=== PATIENT | female | born 1980 | race Caucasian/White ===

== ENCOUNTER 2021-01-23 09:27 | Outpatient (CLI) | payer OTHER, SELFPAY ==
--- NOTE | ~2021-01-23 | XR_ITS ---
EXAMINATION: XR lumbar spine 6V w bending DATE: 01/23/2021 09:58 INDICATION: Chronic low back pain TECHNIQUE: 3 views including anteroposterior, lateral in neutral, flexion and extension, and bilatera l oblique, and cone-down lateral lumbosacral views of the lumbar spine were obtained. COMPARISON: 07/31/2004 FINDINGS: Alignment is normal. Mild anterior wedging at T11 and minimal anterior wedging at T12-L2. Small Schmo rl's node along the superior endplate of L2. Mild disc height loss at T11-T12. Lumbar disc heights ar e normal with minimal degenerative endplate changes at L2-L3 through L4-L5.. Normal motion with flexi on and extension. Mild facet osteoarthritis throughout the lumbar spine. No pars interarticularis def ects. Sacrum and bilateral sacroiliac joints are normal. T-shaped IUD projects over the central pelvi s. Cholecystectomy clips in right upper quadrant. IMPRESSION: 1. Very mild lumbar spondylosis with normal motion on flexion and extension Reviewed, dictated and finalized at location A.
== END 2021-01-23 09:28 | disposition home or self-care (01) ==
LOC: ANHIMG 09:31
PROVIDERS: PCP Physician Assistant; Visit Provider Physician Assistant
DX: M54.5 Low back pain (principal); M47.816 Spondylosis without myelopathy or radiculopathy, lumbar region
CPT/HCPCS: 72114

== ENCOUNTER 2021-02-06 09:17 | Outpatient (CLI) | payer OTHER, SELFPAY ==
--- NOTE | ~2021-02-06 | MM_ITS ---
EXAMINATION: MM screening polly BI w alexei HISTORY: Screening TECHNIQUE: Craniocaudal and mediolateral oblique 3-D tomosynthesis images were obtained and synthetic 2-D images were generated. CAD analysis was submitted and interpreted. COMPARISON: No prior mammogram is available for comparison at this institution. BREAST PARENCHYMAL COMPOSITION: There are scattered areas of fibroglandular density. FINDINGS: There are multiple focal asymmetries in the right breast which are partially obscured by fi broglandular tissue. There are no suspicious masses, calcifications or architectural distortion in th e left breast to suggest malignancy. IMPRESSION: 1. Multiple left breast asymmetries. 2. Additional mammographic views and possible breast ultrasound are recommended. BI-RADS Category 0: Incomplete: Needs additional imaging evaluation. Reviewed, dictated and finalized at location A. IMPRESSION: 1. Multiple left breast asymmetries. 2. Additional mammographic views and possible breast ultrasound are recommended . BI-RADS Category 0: Incomplete: Needs additional imaging evaluation.
== END 2021-02-06 09:18 | disposition home or self-care (01) ==
LOC: ANHIMG 09:19
PROVIDERS: PCP Physician Assistant; Visit Provider Obstetrics & Gynecology
DX: Z12.31 Encounter for screening mammogram for malignant neoplasm of breast (principal); R92.8 Other abnormal and inconclusive findings on diagnostic imaging of breast
CPT/HCPCS: 77063; 77067

== ENCOUNTER 2021-02-26 12:21 | Outpatient (CLI) | payer OTHER, SELFPAY ==
--- NOTE | ~2021-02-26 | MMUS_ITS ---
EXAMINATION: MM diagnostic polly BI w alexei, US breast LT limited, US breast RT complete HISTORY: Follow-up right breast asymmetries. Palpable left breast abnormality. TECHNIQUE: Additional 3-D tomosynthesis images of the breasts were performed and synthetic 2-D images were generated. CAD analysis was submitted and interpreted. High resolution complete right hand Limi yakov left breast ultrasound was performed. COMPARISON: 02/06/2021 BREAST PARENCHYMAL COMPOSITION: Breast composed of scattered areas of fibroglandular density. FINDINGS: MAMMOGRAPHIC FINDINGS: There are no suspicious masses, calcifications or architectural distortion in the left breast to sugg est malignancy. There are small radiolucent masses in the lower aspect of the right breast. ULTRASOUND: Complete right breast ultrasound: At 9:00, 2 cm from the nipple, there is a 3 mm cyst. No suspicious masses to suggest malignancy. Limited left breast ultrasound: Normal heterogeneous echotexture without focal mass. IMPRESSION: 1. Probable benign right breast masses. A single 3 mm cyst is identified in the right breast at 9:00, 2 cm from the nipple. No evidence for malignancy in the left breast. 2. Recommend 6 month follow-up diagnostic right mammogram BI-RADS category 3, probably benign findings. Reviewed, dictated and finalized at location A. IMPRESSION: 1. Probable benign right breast masses. A single 3 mm cyst is identified in the right breast at 9:00, 2 cm from the nipple. No evidence for malignancy in the left breast. 2. Recommend 6 month follow-up diagnostic right mammogram BI-RADS category 3, probably benign findings. IMPRESSION: 1. Probable benign right breast masses. A single 3 mm cyst is identified in the right breast at 9:00, 2 cm from the nipple. No evidence for malignancy in the left breast. 2. Recommend 6 month follow-up diagnostic right mammogram BI-RADS category 3, probably benign findings.
== END 2021-02-26 12:22 | disposition home or self-care (01) ==
PROVIDERS: PCP Physician Assistant; Visit Provider Obstetrics & Gynecology
DX: N60.01 Solitary cyst of right breast (principal)
CPT/HCPCS: 76641; 76642; 77062; 77066; G0279

== ENCOUNTER 2023-06-15 10:40 | Outpatient (CLI) | payer OTHER, SELFPAY ==
--- NOTE | ~2023-06-15 | XR_ITS ---
XR cervical spine min 6V DATE: 06/15/2023 11:42 INDICATION: Neck pain TECHNIQUE: AP, open-mouth, lateral, swimmer views. Flexion and extension lateral views COMPARISON: None FINDINGS: There is straightening of the cervical spine. C1 and C2 are normally aligned and the odonto id process is intact. No fracture or dislocation or locked facet or cervical instability is noted. No prevertebral soft tissue swelling. There is mild loss of disc space height and mild anterior and moderate posterior spurring at C5-6 and moderately prominent loss of disc space height, mild anterior and more prominent posterior spurring at C6-7. Uncovertebral joint spurring is noted in the mid and lower cervical spines, more pronounced at C5-6 o n the right. IMPRESSION: Straightening of the cervical spine Moderate degenerative disc disease at C5-6 and C6-7 Reviewed, dictated and finalized at location L. 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
--- NOTE | ~2023-06-15 | XR_ITS ---
Thoracic spine: Clinical Indication: Back pain AP and lateral views were performed. No fracture is seen. There is normal alignment of the vertebrae. The intervertebral disc spaces appe ar normal. Paravertebral soft tissues appear normal. Impression: No significant abnormalities noted. Reviewed, dictated and finalized at [facility]. T MANAGER Impression: No significant abnormalities noted.
== END 2023-06-15 10:41 ==
PROVIDERS: PCP Chiropractor; Visit Provider Chiropractor
DX: M50.322 Other cervical disc degeneration at C5-C6 level (principal); M50.323 Other cervical disc degeneration at C6-C7 level
CPT/HCPCS: 72052; 72070

== ENCOUNTER 2025-04-25 08:22 | Outpatient (CLI) | payer OTHER, SELFPAY ==
--- NOTE | ~2025-04-25 | MR_ITS ---
EXAMINATION: MR lumbar spine wo con DATE: 04/25/2025 09:02 INDICATION: Chronic bilateral low back pain TECHNIQUE: Magnetic resonance imaging (MRI) of the lumbar spine was performed without intravenous contrast. Sequences included sagittal T2-weighted FSE, sagittal T2-weighted FS FSE, sagittal T1-weighted FSE, and axial T2-weighted FSE. COMPARISON: None FINDINGS: 1-2 mm retrolisthesis L2 on L3 and L3 on L4. Chronic appearing likely physiologic mild anterior wedging at T11 and T12. Lumbar vertebral body heights are normal. Small Schmorl's node along the along the superior endplate of L2. Normal marrow signal. Disc heights are normal. The conus medullaris terminates at L1-L2. There is normal signal in the caudal spinal cord. Paravertebral soft tissues are unremarkable. The following disc levels are specifically discussed: T11-T12: Moderate size central disc protrusion. There is mild bilateral facet joint osteoarthritis. There is no neural foraminal stenosis. There is mild central canal stenosis. T12-L1: Disc is minimally bulging. There is mild bilateral facet joint osteoarthritis. There is no neural foraminal stenosis. There is no central canal stenosis. L1-L2: Disc is mildly bulging. There is mild bilateral facet joint osteoarthritis. There is minimal left neural foraminal stenosis. There is mild central canal stenosis. L2-L3: Disc is mildly bulging. There is moderate bilateral facet joint osteoarthritis. There is mild right and minimal left neural foraminal stenosis. There is mild central canal stenosis. L3-L4: Disc is bulging with superimposed central annular fissure and disc extrusion with disc material extending up to 3 mm caudal to the level of the superior endplate of L4. There is moderate bilateral facet joint osteoarthritis. There is mild bilateral neural foraminal stenosis. There is mild central canal stenosis. L4-L5: Disc is bulging with superimposed central annular fissure and disc extrusion with disc material extending up to 3 mm caudal to the level of the superior endplate of L5. There is moderate left and mild right facet joint osteoarthritis. There is mild to moderate bilateral neural foraminal stenosis. There is mild central canal stenosis. L5-S1: The disc does not extend beyond the endplate margin. There is moderate to severe bilateral facet joint osteoarthritis. There is mild bilateral neural foraminal stenosis. There is no central canal stenosis. IMPRESSION: 1. Mild lumbar spondylosis. Reviewed, dictated and finalized at location A. 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 Mild lumbar spondylosis.
== END 2025-04-25 08:23 | disposition home or self-care (01) ==
LOC: MICIMG 08:23
PROVIDERS: PCP Internal Medicine
DX: M47.816 Spondylosis without myelopathy or radiculopathy, lumbar region (principal)
CPT/HCPCS: 72148